=== PATIENT | male | born 1955 | race Caucasian/White ===

== ENCOUNTER 2020-06-09 23:50 | Emergency (ER) | payer OTHER, SELFPAY ==
[2020-06-09 23:58] VITALS: BP 138/79; PULSE 83; RESP 22; TEMP 36.9; O2SAT 94
--- NOTE | 2020-06-10 00:13 | ED_ITS ---
HPI - Male Genitourinary General Chief complaint: Urogenital-Male Stated complaint: catheter is clogged Time Seen by Provider: 06/09/20 23:58 Source: patient Mode of arrival: Ambulatory Limitations: no limitations History of Present Illness HPI Narrative: Patient is a 65-year-old male with chronic indwelling Greer catheter for prostate cancer. He has noticed over the last few hours it is not draining like it normally does. Previously he has waited too long and was in severe pain so he decided to come to the ED to have it addressed. He has not had any fevers chills nausea vomiting or any other symptoms. MD Complaint: other (Greer catheter problem) Related Data Allergies Allergy/AdvReac Type Severity Reaction Status Date / Time Penicillins Allergy Verified 06/09/20 23:59 Review of Systems Review of Systems Narrative: GENERAL: Denies chills,fever HEENT: Denies throat pain RESPIRATORY: Denies dyspnea, cough, wheezing CARDIOVASCULAR: Denies chest pain, palpitations GASTROINTESTINAL: Denies nausea, vomiting : See HPI MUSCULOSKELETAL: Denies extremity pain, injury SKIN: No rash, no laceration, no pruritus NEUROLOGIC: Denies weakness, dizziness, headache, numbness 8 point review of systems is negative except for those stated above and HPI Patient History Medical History Prostate cancer Exam Initial Vital Signs Initial Vital Signs: Vital Signs Temperature 98.5 F 06/09/20 23:58 Pulse Rate 83 06/09/20 23:58 Respiratory Rate 22 06/09/20 23:58 Blood Pressure 138/79 06/09/20 23:58 Pulse Oximetry 94 06/09/20 23:58 GENERAL: Alert well-appearing male standing in no acute distress CARDIOVASCULAR: peripheral pulses in tact, cap refill <2 sec RESPIRATORY: No respiratory distress, speaks in full sentences without difficulty : Greer catheter in place and draining no gross blood EXTREMITIES: Normal range of motion, no clubbing or edema. Neurovascularly intact NEUROLOGICAL: Cranial nerves II through XII grossly intact. Normal gait and spe ech. SKIN: Warm, dry, no petechiae, no rashes or lesions. Course Vital Signs Vital signs: Vital Signs - 8 hr 06/09/20 23:58 Temperature 98.5 F Pulse Rate 83 Respiratory Rate 22 Blood Pressure 138/79 Pulse Oximetry 94 MDM - Male Genitourinary MDM Narrative Medical decision making narrative: Nurse was able to quickly flush catheter and began draining. No gross blood no blood clots. He had minimal amount in his bladder. At this time patient has chronic indwelling Greer catheter and is asymptomatic at this time no indication to check UA. Discharge Plan Departure Patient Disposition: Home Clinical Impression: Greer catheter problem Qualifiers: Encounter type: initial encounter Qualified Code(s): T83.9XXA - Unspecified complication of genitourinary prosthetic device, implant and graft, initial encounter Instructions: How to Care for Your Greer Catheter -- Male Activity Restrictions/Additional Instructions: *You have been diagnosed with problem with catheter *What to do: Continue to monitor catheter for drainage at this time it seems to be working *Continue to take medications as directed *Follow up with your primary care provider in 2-3 days *Return to ER if you should have decreased drainage, gross blood, fever or any new, worsening or concerning symptoms
--- NOTE | 2020-06-10 00:20 | PC.NURSE ---
oconnor irrigated with 90 ml sterile water and returned 350 ml.one small clot noted,he never did c/o bladder pain or pressure here.now draining clear dark angie colored fluid,bladder scan post irrigation is less than 10 ml.
== END 2020-06-10 00:20 | disposition home or self-care (01) ==
LOC: ED 06-10 00:29
PROVIDERS: Emergency Provider Emergency Medicine
DX: T83.9XXA Unspecified complication of genitourinary prosthetic device, implant and graft, initial encounter (principal)
CPT/HCPCS: 51700; 51798; 99283; 99284

== ENCOUNTER 2020-06-10 02:08 | Emergency (ER) | payer OTHER, SELFPAY ==
[2020-06-10 02:15] VITALS: BP 144/79; PULSE 72; RESP 21; TEMP 36.3; O2SAT 97
--- NOTE | 2020-06-10 02:27 | ED.MALEGU ---
HPI - Male Genitourinary General Chief complaint: Urogenital-Male Stated complaint: catheter is not draining urine Time Seen by Provider: 06/10/20 02:13 Source: patient Mode of arrival: Ambulatory Limitations: no limitations History of Present Illness HPI Narrative: Patient is 65-year-old male who has a history of prostate cancer and chronic indwelling Greer catheter who was just released here couple of hours ago after his Greer catheter had a clot in it. He feels like there is another clot he has some pressure in his abdomen and it is not draining. MD Complaint: other (Catheter problem) Onset (ago): hour(s) Related Data Allergies Allergy/AdvReac Type Severity Reaction Status Date / Time Penicillins Allergy Verified 06/09/20 23:59 Review of Systems Review of Systems Narrative: GENERAL: Denies chills,fever HEENT: Denies throat pain RESPIRATORY: Denies dyspnea, cough, wheezing CARDIOVASCULAR: Denies chest pain, palpitations GASTROINTESTINAL: Denies nausea, vomiting : See HPI MUSCULOSKELETAL: Denies extremity pain, injury SKIN: No rash, no laceration, no pruritus NEUROLOGIC: Denies weakness, dizziness, headache, numbness 8 point review of systems is negative except for those stated above and HPI Patient History Medical History Prostate cancer Exam Initial Vital Signs Initial Vital Signs: GENERAL: Well-appearing, well-nourished and in no acute distress. CARDIOVASCULAR: peripheral pulses in tact, cap refill <2 sec RESPIRATORY: No respiratory distress, speaks in full sentences without difficulty ABDOMEN: Soft, nontender, no guarding or rebound : Greer catheter in place draining multiple blood clots removed with irrigation by nursing Jaret EXTREMITIES: Normal range of motion, no clubbing or edema. Neurovascularly intact NEUROLOGICAL: Cranial nerves II through XII grossly intact. Normal gait and speech. SKIN: Warm, dry, no petechiae, no rashes or lesions. Course Orders Ordered: Discontinued Medications Lidocaine HCl (Lidocaine 2% (Urojet) 5 Ml Gel) 5 ml TOP NOW ONE Stop: 06/10/20 02:14 MDM - Male Genitourinary MDM Narrative Medical decision making narrative: Greer catheter apparently is difficult to replace a was done previously by a urologist. Locally multiple clots were removed with simple irrigation. No gross blood continues to drain easily Discharge Plan Departure Patient Disposition: Home Clinical Impression: Greer catheter problem Qualifiers: Encounter type: initial encounter Qualified Code(s): T83.9XXA - Unspecified complication of genitourinary prosthetic device, implant and graft, initial encounter Instructions: How to Care for Your Greer Catheter -- Male Activity Restrictions/Additional Instructions: *You have been diagnosed with problem with catheter *What to do: Continue to monitor catheter for drainage at this time it seems to be working *Continue to take medications as directed *Follow up with your primary care provider in 2-3 days *Return to ER if you should have decreased drainage, gross blood, fever or any new, worsening or concerning symptoms
[2020-06-10 02:45] VITALS: BP 138/73; PULSE 65; RESP 18; O2SAT 96
--- NOTE | 2020-06-10 02:50 | PC.NURSE ---
His oconnor was irrigated with 500 ml sterile water and some small blood clots noted 500 ml sterile water was used to irrigate his catheter until it returned clear drainage with no blood clots.He stated the bladder pressure was gone,a new oconnor drainage bag was applied as his old one would not clamp closed,he stated his urologist had to insert his oconnor cath due the size of his prostate and that it was difficult.
--- NOTE | 2020-06-10 03:02 | PC.NURSE ---
His oconnor returned 800 ml urine after irrigation with 500 ml sterile water.
== END 2020-06-10 02:45 | disposition home or self-care (01) ==
PROVIDERS: Emergency Provider Emergency Medicine
DX: T83.9XXA Unspecified complication of genitourinary prosthetic device, implant and graft, initial encounter (principal); C61 Malignant neoplasm of prostate
CPT/HCPCS: 51700; 51798; 99283; 99284

== ENCOUNTER 2022-05-15 16:54 | Emergency (ER) | payer OTHER, SELFPAY ==
[2022-05-15 17:15] VITALS: BP 154/89; PULSE 77; RESP 20; TEMP 36.3; O2SAT 100
[2022-05-15 18:07] LABS: Bacteria Urine Many (>30); RBC Urine 30-100/HPF (0-5/HPF); Squamous Epithelial Cell Urine 1-5 /HPF (0-5/HPF); Triple Phosphate Crystal Urine Moderate; WBC Urine 5-10/HPF (0-5/HPF)
[2022-05-15] MEDS: PHENAZOPYRIDINE 100 MG TABLET PO (19:05)
[2022-05-15] MEDS: TRIMETH/SULFA 160/800 (DS) TABLET 1 TAB PO (19:05)
--- NOTE | 2022-05-15 19:53 | ED_ITS ---
HPI - Male Genitourinary <OFELIA Srivastava - Last Filed: 05/15/22 19:59> General Chief complaint: Urogenital-Male Stated complaint: Plugged Cath Time Seen by Provider: 05/15/22 16:56 Source: patient Mode of arrival: Ambulatory History of Present Illness HPI Narrative: This is a 66-year-old male with history of suprapubic catheter who is visiting from out of town and presents to the emergency department with acute onset of suprapubic pressure concern for obstruction of his Greer catheter as it has stopped draining at the same time that he started feeling pain. He came in because he does not have a catheter flushed kit with him. He states that he has a lot of sediment in his urine at baseline, states that he has had increased sediment over the last 1 and half to 2 weeks. Denies any fever, chills, a bdominal pain other than his suprapubic pressure which he states was relieved after his catheter was flushed and made patent again. Patient has urology follow-up scheduled for May 24 with his urologist. He states that in 2 days he is flying to [place]. Related Data Previous Rx's Medication Instructions Recorded sulfamethoxazole 400 1 tab PO BID bacteruria 10 days 05/15/22 mg-trimethoprim 80 mg tablet #20 tabs (Bactrim) Allergies Allergy/AdvReac Type Severity Reaction Status Date / Time Penicillins Allergy Verified 06/09/20 23:59 Review of Systems <OFELIA Srivastava - Last Filed: 05/15/22 19:59> Review of Systems Narrative: Review of systems is negative for acute abnormalities unless otherwise noted in HPI Patient History <OFELIA Srivastava - Last Filed: 05/15/22 19:59> Medical History Prostate cancer Social History Smoking Status: Former smoker Exam <OFELIA Srivastava - Last Filed: 05/15/22 19:59> Narrative Exam Narrative: Reviewed vitals signs and nursing notes. General: cooperative, comfortable, in no acute distress, well groomed, afebrile Cardiovascular: regular rate and rhythm, no peripheral edema, warm extremities Respiratory: normal effort, able to speak in complete sentences, without wheezing, stridor, or abnormal breath sounds. No retractions or tachypnea. GI: abdomen soft, nontender to palpation, nondistended, without masses, rebound tenderness or exquisite tenderness with exam. No tenderness to his suprapubic region with palpation after catheter was made patent : Suprapubic catheter without obvious obstruction in the tubing, bedside RN removed the catheter tubing, flushed catheter until urine started flowing, he now has clear yellow urine flowing from catheter. Large amount of sediment and debris notable in the urine with a odor. Psych: mental status is grossly normal, congruent mood, normal affect, pleasant and cooperative Initial Vital Signs Initial Vital Signs: Vital Signs Temperature 97.4 F L 05/15/22 17:15 Pulse Rate 77 05/15/22 17:15 Respiratory Rate 20 05/15/22 17:15 Blood Pressure 154/89 H 05/15/22 17:15 Pulse Oximetry 100 05/15/22 17:15 Oxygen Delivery Method 05/15/22 17:15 <Gene Calhoun DO - Last Filed: 05/19/22 07:08> Initial Vital Signs Initial Vital Signs: Vital Signs Temperature 97.4 F L 05/15/22 17:15 Pulse Rate 77 05/15/22 17:15 Respiratory Rate 20 05/15/22 17:15 Blood Pressure 154/89 H 05/15/22 17:15 Pulse Oximetry 100 05/15/22 17:15 Oxygen Delivery Method 05/15/22 17:15 Course <OFELIA Srivastava - Last Filed: 05/15/22 19:59> Orders Ordered: Discontinued Medications Phenazopyridine HCl (Phenazopyridine 100 Mg Tablet) 100 mg PO NOW ONE Stop: 05/15/22 18:14 Last Admin: 05/15/22 19:05 Dose: 100 mg Documented By: GABRIEL Trimethoprim/Sulfamethoxazole (Trimeth/Sulfa 160/800 (Ds) Tablet) 1 tab PO NOW ONE Stop: 05/15/22 18:14 Last Admin: 05/15/22 19:05 Dose: 1 tab Documented By: GABRIEL Vital Signs Vital signs: Vital Signs - 8 hr 05/15/22 17:15 Temperature 97.4 F L Pulse Rate 77 Respiratory Rate 20 Blood Pressure 154/89 H Pulse Oximetry 100 Oxygen Delivery Method Room Air <Gene Calhoun DO - Last Filed: 05/19/22 07:08> Orders Ordered: Discontinued Medications Phenazopyridine HCl (Phenazopyridine 100 Mg Tablet) 100 mg PO NOW ONE Stop: 05/15/22 18:14 Last Admin: 05/15/22 19:05 Dose: 100 mg Documented By: GABRIEL Trimethoprim/Sulfamethoxazole (Trimeth/Sulfa 160/800 (Ds) Tablet) 1 tab PO NOW ONE Stop: 05/15/22 18:14 Last Admin: 05/15/22 19:05 Dose: 1 tab Documented By: GABRIEL Vital Signs Vital signs: Vital Signs - 8 hr 05/15/22 17:15 Temperature 97.4 F L Pulse Rate 77 Respiratory Rate 20 Blood Pressure 154/89 H Pulse Oximetry 100 Oxygen Delivery Method Room Air MDM - Male Genitourinary <Patricia Belcher [facility] - Last Filed: 05/15/22 19:59> Lab Data Labs: Lab Results 05/15/22 Range/Units 17:21 Urine RBC 30-100/hpf H (0-5/HPF) Urine WBC 5-10/hpf H (0-5/HPF) Ur Squamous Epith Cells 1-5 /hpf (0-5/HPF) Triple Phos Crystals Moderate Urine Bacteria Many (>30) H (None) MDM Narrative Medical decision making narrative: This is a 66-year-old male who presents emergency department with a chronic indwelling suprapubic catheter that became obstructed today. Patient states he is had increased sediment in his urine over the last 2 weeks. His catheter was flushed, started draining, clear yellow urine was flowing for approximately 1 hour without any signs of further obstruction. Microscopy was obtained as patient's urine initially was cloudy, it does have an odor, he does not have follow-up scheduled for 8 days and is traveling. Urine was positive for RBCs, WBCs, bacteria and moderate try phos crystals. Urine was sent for culture no prior urine cultures on exam. Patient is allergic to penicillin, Bactrim double-strength was ordered b.i.d. for the next 10 days, encourage patient to follow-up with his urologist, was given a flush kit for his catheter that he can use while traveling if this happens again. Patient denies any flank pain, suprapubic tenderness now, denies any nausea, chills or other symptom. Patient is appropriate and amenable to discharge home. Vital signs are stable on repeat examination is unremarkable. Patient has been informed of results. Patient has been given strict return to ER precautions for any new or worsening symptoms. Patient understands to follow up closely with outpatient providers as instructed. Patient understands plan and agrees to discharge home. All questions and concerns answered at this time. <Gene Calhoun, DO - Last Filed: 05/19/22 07:08> Lab Data Labs: Lab Results 05/15/22 Range/Units 17:21 Urine RBC 30-100/hpf H (0-5/HPF) Urine WBC 5-10/hpf H (0-5/HPF) Ur Squamous Epith Cells 1-5 /hpf (0-5/HPF) Triple Phos Crystals Moderate Urine Bacteria Many (>30) H (None) Discharge Plan Departure Patient Disposition: Home Clinical Impression: Chronic indwelling Greer catheter, Bacteriuria Instructions: How to Care for Your Greer Catheter -- Male, DI for Urinary Tract Infection (UTI) Activity Restrictions/Additional Instructions: *You have been diagnosed with bacteria in your urine along with sediment. Please take this antibiotic, another name for it is Bactrim, twice a day for the next 10 days to help treat your bacteria in your catheter. If you develop any symptoms of illness like nausea, chills, abdominal pain, other symptoms, please return to a emergency department for another evaluation. We will call you if your urine culture grows out a bacteria that is resistant to this antibiotic. I hope you feel better soon, it was a pleasure to meet you, thank you for your patients today, enjoy your vacation. *What to do: *Please continue to take your regular medications as directed. [x ] New medication prescriptions sent to your pharmacy: [ [facility]] [ ] New medication written as a paper prescription [ ] No new medications given *Please follow up with your primary care provider in 2-3 days, call for an appointment. Let them know you were seen in the Emergency Department and that we asked that you be seen for follow-up. We will electronically transmit a record of today's note if your PCP is in our system *If you do not have a primary care provider please contact [phone] to establish care with one of [facility] primary care providers. *Return to Emergency Department if you should have any new, worsening, or concerning symptoms, such as [fever greater than 101F, chills, worsening pain, persistent vomiting or other bothersome symptoms]. Prescriptions: New sulfamethoxazole-trimethoprim [Bactrim] 400-80 mg tablet 1 tab PO BID 10 Days Qty: 20 0RF Referrals: Miscellaneous,Doctor, [Primary Care Provider] - Visit Report Forms: Patient Portal/API <Gene Calhoun DO - Last Filed: 05/19/22 07:08> Cosign ED Attending Coskarolature Attestation: I was immediately available in the department for consultation. This documentation has been reviewed and I agree with assessment and plan. Supervised by Gene Calhoun DO
== END 2022-05-15 18:36 | disposition home or self-care (01) ==
PROVIDERS: Emergency Provider Nurse Practitioner Critical Care Medicine
DX: T83.9XXA Unspecified complication of genitourinary prosthetic device, implant and graft, initial encounter (principal); R82.71 Bacteriuria
CPT/HCPCS: 81015; 87077; 87086; 87186; 99283

== ENCOUNTER 2022-05-16 11:47 | Emergency (ER) | payer OTHER, SELFPAY ==
[2022-05-16 11:55] VITALS: BP 152/71; PULSE 76; RESP 22; TEMP 35.9; O2SAT 96; BMI 27.3
--- NOTE | 2022-05-16 12:16 | PC.NURSE ---
Pt states he was in ED last night. States supra pubic catheter was flushed last night at [facility], significant sediment was removed from the catheter. This morning catheter is clogged again. Pt tried to flush it this am, unsuccessfully. States bladder/kidney pain 02/23. States he is due to have catheter replaced in one week in [place] area.
--- NOTE | 2022-05-16 12:23 | ED.MALEGU ---
HPI - Male Genitourinary General Chief complaint: Urogenital-Male Stated complaint: Catheter plugged again severe PAIN Time Seen by Provider: 05/16/22 12:10 Source: patient Mode of arrival: Ambulatory History of Present Illness HPI Narrative: 66-year-old male former smoker with chronic suprapubic catheter presents with severe suprapubic pain and fullness with no drainage through his catheter, additionally complains of some back pain. He was seen and evaluated yesterday and had his Greer flushed it began to drain without difficulty and he was sent home on antibiotics for likely UTI. He is had the suprapubic catheter in place for well over 2 years and is scheduled to have it replaced next week. He denies any fever chills. He denies any dizziness, weakness or lightheadedness. He has no chest pain shortness of breath, nausea or vomiting. He lives in [place] and his urology care is performed there, he is visiting locally Related Data Previous Rx's Medication Instructions Recorded sulfamethoxazole 400 1 tab PO BID bacteruria 10 days 05/15/22 mg-trimethoprim 80 mg tablet #20 tabs (Bactrim) Allergies Allergy/AdvReac Type Severity Reaction Status Date / Time Penicillins Allergy Verified 06/09/20 23:59 Review of Systems Review of Systems Narrative: GENERAL: Denies chills, fatigue, malaise, fever, sweats. HEENT: Denies sinus pain, ear pain, sore throat, difficulty swallowing, dizziness. RESPIRATORY: Denies dyspnea, cough, wheezing, hemoptysis, sputum. CARDIOVASCULAR: Denies chest pain, palpitations, orthopnea, edema, GASTROINTESTINAL: see HPI : see HPI MUSCULOSKELETAL: denies weakness, joint pain, or bony pain SKIN: Denies rash, skin lesions, or other NEUROLOGIC: Denies weakness, headache, numbness, change in speech, confusion, seizures, incoordination. PSYCHIATRIC: No concerning psychosocial issues. 12 point review of systems is negative except for those stated above Patient History Medical History Prostate cancer Social History Smoking Status: Former smoker Smoking Status: Former smoker Exam Narrative Exam Narrative: GEN: AOx3 and in mild distress EYES: Pupils are equal, round, and reactive to light and accommodation. Extraoccular muscles are intact bilaterally. There is no subconjunctival hemorrhage or exudate. CHEST: Lungs are clear to auscultation bilaterally and free of wheezes, rales, or rhonchi. Heart rate is regular rhythm, there are no murmurs, clicks, rubs, or gallops. There is no chest wall tenderness. ABD: Abdomen is soft and slightly distended perhaps a bit full over the suprapubic region. There is no guarding or rebound. Bowel sounds are normal in all 4 quadrants. There is no mass or organomegaly. EXT: Full painless ROM of all extremities with no loss of sensation or strength. SKIN: Warm, pink, and dry. No erythema or rash Initial Vital Signs Initial Vital Signs: Vital Signs Temperature 96.6 F L 05/16/22 11:55 Pulse Rate 76 05/16/22 11:55 Respiratory Rate 22 05/16/22 11:55 Blood Pressure 152/71 H 05/16/22 11:55 Pulse Oximetry 96 05/16/22 11:55 Oxygen Delivery Method 05/16/22 11:55 Course Course Course Narrative: Both patient and nursing attempt to flush suprapubic catheter without any return. Bedside ultrasound demonstrates greater than 500 cc of urine in the bladder. Under sterile conditions I quickly and easily replaced his existing suprapubic catheter with a 16 [place]. There was immediate return of urine and a near immediate and complete resolution of patient's symptoms. Patient given return precautions and questions answered to his apparent satisfaction Vital Signs Vital signs: Vital Signs - 8 hr 05/16/22 11:55 Temperature 96.6 F L Pulse Rate 76 Respiratory Rate 22 Blood Pressure 152/71 H Pulse Oximetry 96 Oxygen Delivery Method Room Air Discharge Plan Departure Patient Disposition: Home Clinical Impression: Blocked suprapubic catheter Instructions: How to Care for a Suprapubic Catheter Activity Restrictions/Additional Instructions: *You have been diagnosed with [suprapubic catheter problem ] *What to do: *Please continue to take your regular medications as directed. *Please follow up with your primary care provider in 2-3 days, call for an appointment. Let them know you were seen in the Emergency Department and that we ask that you be seen in follow up. We will electronically transmit a record of today's note if your PCP is in our system *Return to Emergency Department if you should have any new, worsening or concerning symptoms, such as [fever greater than 101 F, shaking chills, worsening pain, persistent vomiting or other bothersome symptoms] Prescriptions: No Action sulfamethoxazole-trimethoprim [Bactrim] 400-80 mg tablet 1 tab PO BID 10 Days Qty: 20 0RF Referrals: Miscellaneous,Doctor, [Primary Care Provider] -
[2022-05-16 12:58] VITALS: BP 153/78; PULSE 65; RESP 19; O2SAT 98
--- NOTE | 2022-05-16 13:01 | PC.NURSE ---
Existing 16f suprapubic catheter removed by physician, appeared to be clogged, unable to drain urine. New suprapubic 16f catheter placed by physician, sterile procedure. Pt tolerated procedure well. Pt reported 0/10 pain at time of d/c.
--- NOTE | 2022-05-16 13:05 | PC.NURSE ---
550ml urine output post cath placement. Bladder scan pre procedure, 500ml.
== END 2022-05-16 13:04 | disposition home or self-care (01) ==
PROVIDERS: Emergency Provider Emergency Medicine
DX: T83.090A Other mechanical complication of cystostomy catheter, initial encounter (principal); R10.30 Lower abdominal pain, unspecified
CPT/HCPCS: 99283

== ENCOUNTER 2025-01-25 14:09 | Emergency (ER) | payer OTHER, SELFPAY ==
[2025-01-25 14:25] VITALS: BP 106/58; PULSE 74; RESP 18; TEMP 36.4; O2SAT 91; BMI 25.7
== END 2025-01-25 16:36 | disposition left against medical advice (07) ==
PROVIDERS: Emergency Provider Emergency Medicine
DX: Z53.21 Procedure and treatment not carried out due to patient leaving prior to being seen by health care provider (principal)
CPT/HCPCS: 99281

== ENCOUNTER 2025-01-26 06:44 | Emergency (ER) | payer OTHER, SELFPAY ==
[2025-01-26 06:53] VITALS: BP 105/58; PULSE 66; RESP 19; TEMP 36.5; O2SAT 92; BMI 25.7
--- NOTE | 2025-01-26 08:08 | ED.SKABFB ---
HPI - Skin/Abscess/Foreign Bdy General Chief complaint: Skin/Abscess/Foreign Body Stated complaint: Rash on Back Time Seen by Provider: 01/26/25 07:22 Source: patient Mode of arrival: Ambulatory Limitations: no limitations History of Present Illness HPI narrative: Pleasant 69-year-old man comes to the ER because of a painful warm to the touch bump that has appeared on his left upper back. He states that earlier today it began draining purulent material. He denies any fever, chills, sweats, spreading redness, nausea, vomiting or any other concerns or complaints at this time. Related Data Home Medications ?Medication ?Instructions ?Recorded ?Confirmed abiraterone 250 mg tablet 1,000 mg PO DAILY 01/26/25 01/26/25 albuterol sulfate 90 mcg/actuation 2 puff inhalation Q4H PRN 01/26/25 01/26/25 aerosol inhaler shortness of breath or wheezing ciclesonide 80 mcg/actuation 2 inh inhalation BID 01/26/25 01/26/25 aerosol inhaler (Alvesco) prednisone 5 mg tablet 5 mg PO DAILY 01/26/25 01/26/25 rosuvastatin 20 mg tablet 20 mg PO ONCE PM 01/26/25 01/26/25 tiotropium 2.5 mcg-olodaterol 2.5 2 puff inhalation DAILY 01/26/25 01/26/25 mcg/actuation mist for inhalation (Stiolto Respimat) Previous Rx's ?Medication ?Instructions ?Recorded ciprofloxacin HCl 500 mg tablet 500 mg PO BID #20 tabs 01/26/25 (Cipro) sulfamethoxazole 800 1 tab PO BID #20 tabs 01/26/25 mg-trimethoprim 160 mg tablet (Bactrim DS) Allergies Allergy/AdvReac Type Severity Reaction Status Date / Time Penicillins Allergy Syncope Verified 01/26/25 06:50 Patient History Medical History Prostate cancer Social History Smoking Status: Current some day smoker Smoking Status: Current some day smoker tobacco type: cigars Exam Initial Vital Signs Initial Vital Signs: Vital Signs Temperature 97.7 F 01/26/25 06:53 Pulse Rate 66 01/26/25 06:53 Respiratory Rate 19 01/26/25 06:53 Blood Pressure 105/58 L 01/26/25 06:53 Pulse Oximetry 92 01/26/25 06:53 Oxygen Delivery Method Room Air 01/26/25 06:53 Const General: No in distress and No ill appearing Resp Effort & Inspection: normal respiratory effort Auscultation: clear to auscultation bilaterally Cardio Rate: regular rate Rhythm: regular rhythm Heart Sounds: S1 normal and S2 normal Skin Lesions: lesion noted (raised 2.5 cm diameter area of erythema on the left upper back draining pus) Course Course Course Narrative: Patient seen and examined by myself upon arrival in the ER. The wound was incised and drained as outlined in the procedure note. There was no systemic signs of infection. The patient was put on Cipro and Bactrim because he is allergic to penicillins. I advised him to return for any change or worsening in his condition such as redness swelling drainage warmth fever chills sweats nausea vomiting or feeling generally unwell. Otherwise, I advised him to have the gauze changed every 2 days and he could come back to the ER for this. He was also provided with materials to change the packing gauze him self at home. Orders Ordered: Discontinued Medications Ciprofloxacin (Ciprofloxacin 250 Mg Tablet) 500 mg PO NOW ONE Stop: 01/26/25 08:04 Trimethoprim/Sulfamethoxazole (Trimeth/Sulfa 160/800 (Ds) Tablet) 1 tab PO NOW ONE Stop: 01/26/25 08:04 Vital Signs Vital signs: Vital Signs - 8 hr 01/26/25 06:53 Temperature 97.7 F Pulse Rate 66 Respiratory Rate 19 Blood Pressure 105/58 L Pulse Oximetry 92 Oxygen Delivery Method Room Air MDM - Skin/Abscess/Foreign Bdy Differential Diagnosis Differential diagnosis: Likely abscess of skin or subcutaneous tissue, herpes zoster, cellulitis and impetigo Discharge Plan Departure Patient Disposition: Home Clinical Impression: Abscess of skin or subcutaneous tissue Qualifiers: Site of cutaneous abscess: trunk Site of cutaneous abscess of trunk: back Qualified Code(s): L02.212 - Cutaneous abscess of back [any part, except buttock] Instructions: DI for Skin Abscess Activity Restrictions/Additional Instructions: Make sure that you were changing the gauze packing every 2 days or so. Keep the wound clean and dry for at least the 1st 48 hours. If you have any fever, chills, sweats, increased pain or spreading rash or feeling generally unwell then please return to the ER right away for further evaluation. Otherwise, please follow up with your PCP as soon as possible, and take the antibiotics that I prescribed to you. Prescriptions: New ciprofloxacin HCl [Cipro] 500 mg tablet 500 mg PO BID Qty: 20 0RF sulfamethoxazole-trimethoprim [Bactrim DS] 800-160 mg tablet 1 tab PO BID Qty: 20 0RF No Action albuterol sulfate 90 mcg/actuation HFA aerosol inhaler 2 puff inhalation Q4H PRN (Reason: shortness of breath or wheezing) abiraterone 250 mg tablet 1,000 mg PO DAILY Alvesco 80 mcg/actuation HFA aerosol inhaler 2 inh inhalation BID prednisone 5 mg tablet 5 mg PO DAILY rosuvastatin 20 mg tablet 20 mg PO ONCE PM Stiolto Respimat 2.5-2.5 mcg/actuation mist 2 puff inhalation DAILY Referrals: Miscellaneous,Doctor, [Primary Care Provider, Medical] Stand Alone Forms: Patient Portal/API
--- NOTE | 2025-01-26 08:13 | PM.PROC.1 ---
Procedures Date/Time Date of procedure: 01/26/25 Time of procedure: 07:50 Abscess I/D Site: back Side (if applicable): left Sedation/analgesia: none Anesthetic used: with epi Technique: incised with #11 blade Amount of fluid (mL): 4 Irrigation: Yes Packing used?: iodoform
[2025-01-26] MEDS: TRIMETH/SULFA 160/800 (DS) TABLET 1 TAB PO (08:19)
[2025-01-26] MEDS: CIPROFLOXACIN 250 MG TABLET 500 MG PO (08:19)
== END 2025-01-26 08:22 | disposition home or self-care (01) ==
PROVIDERS: Emergency Provider Emergency Medicine
DX: L02.212 Cutaneous abscess of back [any part, except buttock and flank] (principal)
CPT/HCPCS: 10060; 87070; 87075; 87205; 99283